=== PATIENT | male | born 1950 | race Caucasian/White ===

== ENCOUNTER → 2017-01-28 | Outpatient (CLI) | payer MEDICARE, MEDICAID | END | disposition home or self-care (01) | LOC: RAD 12:32 | PROVIDERS: ATTEND Urology | DX: C61 Malignant neoplasm of prostate (principal) | CPT/HCPCS: 74430 ==

== ENCOUNTER → 2020-09-05 | Outpatient (CLI) | payer MEDICARE, MEDICAID | END | disposition home or self-care (01) | LOC: CVU 06:38 | PROVIDERS: ATTEND Nurse Practitioner | DX: I70.201 Unspecified atherosclerosis of native arteries of extremities, right leg (principal); M25.571 Pain in right ankle and joints of right foot; R60.0 Localized edema | CPT/HCPCS: 93922; 93926; 93970 ==

== ENCOUNTER → 2020-09-17 | Outpatient (CLI) | payer MEDICARE, MEDICAID ==
[~2020-09-17] MED LIST: GADOTERATE 10 MMOL/20ML SYR ONE
== END | disposition home or self-care (01) ==
LOC: RAD 09:47
PROVIDERS: ATTEND Nurse Practitioner
DX: M62.89 Other specified disorders of muscle (principal); M21.961 Unspecified acquired deformity of right lower leg; R60.0 Localized edema
CPT/HCPCS: 73720; A9575

== ENCOUNTER 2020-12-30 15:47 | Inpatient (IN) | payer MEDICARE, MEDICAID ==
[~2020-12-30] VITALS: Ht 177.8 cm; Wt 96.5 kg
[~2020-12-30 15:47] MED LIST changes: +ACET325T14 PO; +ASPI-963 PO; +ATOR40TA78 PO; +DOCU100T3 PO; +DULO60CA56 PO; +ERGO500017 PO; +GABA-827 PO; -GADOTERATE 10 MMOL/20ML SYR ONE; +METF850T10 PO; +OMEP-110 PO; +OXYC5CAP2 PO; +SULF1TAB24 PO
[2020-12-30] MEDS ORDERED: LISI-167 PO (16:21)
[2020-12-30] MEDS ORDERED: ACET-1600 PO (16:21)
[2020-12-30] MEDS ORDERED: [UNRECOGNIZED DRUG - OTHER] PO (16:21)
[2020-12-30] MEDS ORDERED: LACTATED RINGERS 1,000 ML IV SCH (16:30)
[2020-12-30] MEDS ORDERED: CHLORHEXIDINE 15 ML UDC PO ONE (16:30)
[2020-12-30 16:32] VITALS: BP 125/80
[2020-12-30] MEDS ORDERED: FENTANYL PF 250 MCG/5ML ONE (17:41)
[2020-12-30] MEDS ORDERED: LORazepam 2 MG/ML, 1ML IVPush PRN (18:00)
[2020-12-30] MEDS ORDERED: ACETAMINOPHEN 325 MG TABLET PO PRN (18:00)
[2020-12-30] MEDS ORDERED: OXYcodone 5 MG/5 ML ORAL.SOL UDC PO PRN (18:00)
[2020-12-30] MEDS ORDERED: PROMETHAZINE 25 MG/ML, 1ML IVPush PRN (18:00)
[2020-12-30] MEDS ORDERED: hydrALAzine 20 MG/ML, 1ML IV PRN (18:00)
[2020-12-30] MEDS ORDERED: EPHEDRINE 50 MG/ML, 1ML IVPush PRN (18:00)
[2020-12-30] MEDS ORDERED: METHOCARBAMOL 1,000 MG in DEXTROSE 5% 100 ML IV PRN (18:00)
[2020-12-30] MEDS ORDERED: LABETALOL 5MG/ML, 20ML IV PRN (18:00)
[2020-12-30] MEDS ORDERED: ONDANSETRON 2MG/ML, 2ML IVPush PRN (18:00)
[2020-12-30] MEDS ORDERED: DEXAMETHASONE 4 MG/ML, 1ML ONE (18:16)
[2020-12-30] MEDS ORDERED: CEFAZOLIN 1,000 MG ONE (18:16)
[2020-12-30] MEDS ORDERED: ONDANSETRON 2MG/ML, 2ML ONE (18:16)
[2020-12-30] MEDS ORDERED: PROPOFOL 10 MG/ML, 20ML ONE (18:16)
[2020-12-30] MEDS ORDERED: SUCCINYLCHOLINE 20 MG/ML, 10ML ONE (18:16)
[2020-12-30] MEDS ORDERED: ROCURONIUM 10 MG/ML,10ML ONE (18:16)
[2020-12-30] MEDS ORDERED: FENTANYL PF 100 MCG/2ML ONE (19:52)
[2020-12-30] MEDS ORDERED: HYDROmorphone 2 MG/ML, 1ML ONE (19:52)
[2020-12-30] MEDS ORDERED: OXYcodone 5 MG/5 ML ORAL.SOL UDC ONE (19:52)
[2020-12-30] MEDS: FENTANYL PF 100 MCG/2ML IV PRN ×2 (19:55→20:01)
[2020-12-30] MEDS: HYDROmorphone 1 MG/ML, 1ML INJ IVPush PRN ×4 (20:07→20:22)
[2020-12-30] MEDS ORDERED: OXYcodone IR 5MG TABLET PO PRN (22:00)
[2020-12-30] MEDS ORDERED: morphine SULFATE 10 MG/ML, 1ML IV PRN ×3 (22:00)
[2020-12-30] MEDS ORDERED: ACETAMINOPHEN 500 MG TABLET PO PRN (22:00)
[2020-12-30] MEDS ORDERED: ONDANSETRON 2MG/ML, 2ML IV PRN (22:00)
[2020-12-30] MEDS: POTASSIUM CHLORIDE 20 MEQ in SODIUM CHLORIDE 0.9% 1,000 ML IV SCH (22:57)
[2020-12-31 00:11] VITALS: BP 140/78
[2020-12-31] MEDS: OXYcodone/APAP 5/325MG TABLET PO PRN ×5 (01:37→21:52)
[2020-12-31] MEDS: CEFAZOLIN PMX 1GM/50ML 50 ML IVPB SCH ×2 (03:11→11:22)
[2020-12-31 03:54] VITALS: BP 156/90
[2020-12-31] MEDS ORDERED: morphine SULFATE 10 MG/ML, 1ML IV PRN (04:00)
[2020-12-31] MEDS: OMEPRAZOLE 20 MG CAPSULE.DR PO SCH (05:26)
[2020-12-31 07:22] VITALS: BP 146/81
[2020-12-31] MEDS: GABAPENTIN 300 MG CAPSULE PO SCH ×3 (08:11→20:10)
[2020-12-31] MEDS: ASPIRIN 81 MG TABLET CHEW PO SCH (08:11)
[2020-12-31] MEDS: MULTIVITAMINS/MINERALS TABLET PO SCH (08:12)
[2020-12-31] MEDS: LISINOPRIL 10 MG TABLET PO SCH (08:12)
[2020-12-31] MEDS: DOCUSATE 100 MG CAPSULE PO SCH ×2 (08:12→20:10)
[2020-12-31] MEDS: metFORMIN XR 500 MG TAB.ER.24H PO SCH (08:13)
[2020-12-31] MEDS: DULOXETINE 30 MG CAPSULE.DR PO SCH ×2 (08:13→20:09)
[2020-12-31] MEDS: SODIUM CHLORIDE FLUSH 10ML SYR IVF SCH ×2 (08:13→20:10)
[2020-12-31] MEDS: HYDROCHLOROTHIAZIDE 25 MG TABLET PO SCH (08:13)
[2020-12-31] MEDS ORDERED: GABAPENTIN 300 MG CAPSULE PO SCH (09:00)
[2020-12-31] MEDS ORDERED: ERGOCALCIFEROL 50,000 UNIT CAPSULE PO SCH (09:00)
[2020-12-31] MEDS ORDERED: DOCUSATE 100 MG CAPSULE PO SCH (09:00)
[2020-12-31] MEDS: POTASSIUM CHLORIDE 20 MEQ in SODIUM CHLORIDE 0.9% 1,000 ML IV SCH (11:31)
[2020-12-31 13:04] VITALS: BP 137/81
[2020-12-31] MEDS ORDERED: CEFAZOLIN PMX 2GM/50ML 50 ML IVPB SCH (19:00)
[2020-12-31] MEDS ORDERED: CEFAZOLIN 2,000 MG in SODIUM CHLORIDE 0.9% 50 ML IV SCH (19:00)
[2020-12-31] MEDS: ATORVASTATIN 40 MG TABLET PO SCH (20:09)
[2020-12-31] MEDS: CEFAZOLIN PMX 2GM/50ML 50 ML IVPB SCH (20:09)
[2020-12-31 20:19] VITALS: BP 132/74
[2021-01-01] MEDS: POTASSIUM CHLORIDE 20 MEQ in SODIUM CHLORIDE 0.9% 1,000 ML IV SCH ×2 (00:56→14:24)
[2021-01-01 00:57] VITALS: BP 150/88
[2021-01-01] MEDS: OXYcodone/APAP 5/325MG TABLET PO PRN ×4 (02:04→17:24)
[2021-01-01] MEDS: CEFAZOLIN PMX 2GM/50ML 50 ML IVPB SCH ×3 (04:22→21:03)
[2021-01-01 05:01] LABS: BASOPHILS % (AUTO) 1 % (0-1); EOSINOPHILS % (AUTO) 2 % (1-7); HCT (SEDRATE) 38.3 % (39.2-51.8); LYMPHOCYTES % (AUTO) 13 % (22-44); MEAN CORPUSCULAR HEMOGLOBIN 31.1 pg (27.5-34.5); MEAN CORPUSCULAR HGB CONC 34.6 g/dL (33.2-36.2); MEAN PLATELET VOLUME 8.3 fL (7.4-10.4); MONOCYTES % (AUTO) 12 % (2-9); NEUTROPHILS % (AUTO) 73 % (42-75); PLATELET COUNT 248 x10^3/uL (130-400); RED BLOOD COUNT 4.26 x10^6/uL (4.38-5.82); RED CELL DISTRIBUTION WIDTH 14.2 % (9.4-14.8)
[2021-01-01 05:11] LABS: CHLORIDE 97 mmol/L (98-107)
[2021-01-01 05:27] LABS: ALANINE AMINOTRANSFERASE 18 U/L (12-78); ALBUMIN 2.6 g/dL (3.4-5.0); ALKALINE PHOSPHATASE 138 U/L (45-117); ANION GAP 6 mmol/L (5-15); CALCIUM 9.1 mg/dL (8.5-10.1); CREATININE 0.76 mg/dL (0.7-1.3); TOTAL PROTEIN 7.1 g/dL (6.4-8.2)
[2021-01-01] MEDS: OMEPRAZOLE 20 MG CAPSULE.DR PO SCH (06:06)
[2021-01-01 08:19] VITALS: BP 137/85
[2021-01-01] MEDS: MULTIVITAMINS/MINERALS TABLET PO SCH (08:49)
[2021-01-01] MEDS: ASPIRIN 81 MG TABLET CHEW PO SCH (08:49)
[2021-01-01] MEDS: GABAPENTIN 300 MG CAPSULE PO SCH ×3 (08:49→21:02)
[2021-01-01] MEDS: HYDROCHLOROTHIAZIDE 25 MG TABLET PO SCH (08:50)
[2021-01-01] MEDS: LISINOPRIL 10 MG TABLET PO SCH (08:50)
[2021-01-01] MEDS: DULOXETINE 30 MG CAPSULE.DR PO SCH ×2 (08:50→21:02)
[2021-01-01] MEDS: DOCUSATE 100 MG CAPSULE PO SCH ×2 (08:50→21:02)
[2021-01-01] MEDS: metFORMIN XR 500 MG TAB.ER.24H PO SCH (08:50)
[2021-01-01] MEDS: SODIUM CHLORIDE FLUSH 10ML SYR IVF SCH ×2 (08:51→21:00)
[2021-01-01 12:25] VITALS: BP 112/79
[2021-01-01 19:10] VITALS: BP 110/77
[2021-01-01] MEDS: ATORVASTATIN 40 MG TABLET PO SCH (21:02)
[2021-01-02 00:17] VITALS: BP 115/80
[2021-01-02] MEDS: OXYcodone/APAP 5/325MG TABLET PO PRN ×4 (01:17→16:34)
[2021-01-02] MEDS: POTASSIUM CHLORIDE 20 MEQ in SODIUM CHLORIDE 0.9% 1,000 ML IV SCH (02:57)
[2021-01-02] MEDS: CEFAZOLIN PMX 2GM/50ML 50 ML IVPB SCH ×2 (05:14→13:41)
[2021-01-02] MEDS: OMEPRAZOLE 20 MG CAPSULE.DR PO SCH (06:23)
[2021-01-02 07:36] VITALS: BP 114/74
[2021-01-02] MEDS: ASPIRIN 81 MG TABLET CHEW PO SCH (08:23)
[2021-01-02] MEDS: metFORMIN XR 500 MG TAB.ER.24H PO SCH (08:23)
[2021-01-02] MEDS: DOCUSATE 100 MG CAPSULE PO SCH (08:23)
[2021-01-02] MEDS: DULOXETINE 30 MG CAPSULE.DR PO SCH (08:23)
[2021-01-02] MEDS: GABAPENTIN 300 MG CAPSULE PO SCH ×2 (08:23→16:31)
[2021-01-02] MEDS: LISINOPRIL 10 MG TABLET PO SCH (08:24)
[2021-01-02] MEDS: HYDROCHLOROTHIAZIDE 25 MG TABLET PO SCH (08:24)
[2021-01-02] MEDS: MULTIVITAMINS/MINERALS TABLET PO SCH (08:31)
[2021-01-02] MEDS: SODIUM CHLORIDE FLUSH 10ML SYR IVF SCH (09:51)
[2021-01-02 13:00] VITALS: BP 102/70
[2021-01-02 18:45] VITALS: BP 117/76
== END 2021-01-02 19:02 | DRG 909 ==
LOC: ORIP 15:47 → 4NE 21:12
PROVIDERS: ADMIT Orthopaedic Surgery; ATTEND Orthopaedic Surgery
PROC: 0Y6H0Z1 Detachment at Right Lower Leg, High, Open Approach (ICD-10-PCS; principal; 2020-12-30 17:45)
DX: T81.30XA Disruption of wound, unspecified, initial encounter (principal); E11.51 Type 2 diabetes mellitus with diabetic peripheral angiopathy without gangrene; E78.00 Pure hypercholesterolemia, unspecified; I10 Essential (primary) hypertension; M77.9 Enthesopathy, unspecified; Z20.822 Contact with and (suspected) exposure to COVID-19; Y84.8 Other medical procedures as the cause of abnormal reaction of the patient, or of later complication, without mention of misadventure at the time of the procedure; Y92.89 Other specified places as the place of occurrence of the external cause
CPT/HCPCS: 36415; 80053; 82962; 85025; 85651; 86140; 87070; 87075; 87102; 87116; 87205; 87206; 87635; 88307; G0378; J0690; J1100; J1170; J2405; J2704; J3010; J3480; J0330; J2270; J7030